=== PATIENT | female | born 1995 | race Caucasian/White ===

== ENCOUNTER → 2025-01-19 | Outpatient (CLI) | payer OTHER, SELFPAY ==
--- NOTE | 2025-01-19 13:14 | RAD_ITS ---
PROCEDURE: KNEE 4 OR MORE VIEWS 01/19/2025 REASON FOR EXAM: PAIN/ SWELLING TECHNIQUE: 4 view(s) of the left knee COMPARISON: None available FINDINGS: No fracture or dislocation. Moderate appearing joint effusion. Status post ACL repair. The joint spaces appear within limits. RAD/Knee 4 or More Views IMPRESSION: No fracture or dislocation. Moderate appearing joint effusion. Status post ACL repair. Reading Location: [id number]
== END | disposition home or self-care (01) ==
LOC: MTRAD 13:09
PROVIDERS: PCP Family Medicine; Referring Provider Family Medicine; Visit Provider Family Medicine
DX: M25.562 Pain in left knee (principal)
CPT/HCPCS: 73564